=== PATIENT | female | born 1980 | race Caucasian/White ===

== ENCOUNTER 2017-08-31 10:32 | Emergency (ER) | payer MEDICAID ==
[~2017-08-31] VITALS: Ht 144.8 cm; Wt 54.4 kg
[2017-08-31 10:37] VITALS: BP 113/72
--- NOTE | 2017-08-31 10:50 | NUR ---
PT. CAME INTO THE ED W/ C/O L FANK PAIN SINCE THIS MORNING. PAIN UPON URINATION AND FREQUENCY. DENIES FEVER AND CHILLS, RR EVEN AND UNLABORED. DENIES ANY SOB, DENIES CHEST PAIN, RR EVEN AND UNLABORED. PT DENIES ANY ALLERGIES. ER MD NOTIFIED. WILL CONTINUE TO MONITOR
[2017-08-31] MEDS ORDERED: HYDROcodone/APAP 10/325 MG 1 TAB TAB PO ONE (11:00)
[2017-08-31 11:31] LABS: BASOPHILS % (AUTO) 0.5 % (0.0-2.0); EOSINOPHILS % (AUTO) 0.8 % (0.0-4.0); HEMATOCRIT 38.5 % (36-48); HEMOGLOBIN 13.4 g/dL (12.0-16.0); LYMPHOCYTES # (AUTO) 1.7 K/uL (2.5-16.5); LYMPHOCYTES % (AUTO) 28.9 % (20.5-51.1); MEAN CORPUSCULAR HEMOGLOBIN 30 pg (27-31); MEAN CORPUSCULAR HGB CONC 35 g/dL (33-37); MEAN CORPUSCULAR VOLUME 86.1 fL (80-94); MONOCYTES # (AUTO) 0.4 K/uL (0.8-1.0); MONOCYTES % (AUTO) 6.3 % (1.7-9.3); NEUTROPHILS # (AUTO) 3.8 K/uL (1.8-7.7); NEUTROPHILS % (AUTO) 63.5 % (42.2-75.2); PLATELET COUNT (AUTO) 189 K/uL (140-450); RED BLOOD CELL COUNT(AUTO) 4.47 MIL/uL (4.20-5.40); RED CELL DISTRIBUTION WIDTH 12.7 % (11.6-13.7)
[2017-08-31 11:39] LABS: APPEARANCE,URINE CLEAR (CLEAR); BILIRUBIN,URINE NEGATIVE (NEGATIVE); BLOOD, URINE 2+ (NEGATIVE); COLOR,URINE YELLOW (YELLOW); LEUKOCYTE ESTERASE ,URINE NEGATIVE (NEGATIVE); NITRITE, URINE NEGATIVE (NEGATIVE); UGLUCOSE 3+ (NEGATIVE)
[2017-08-31 11:48] LABS: ANION GAP 11.8 (8-16); CARBON DIOXIDE 29.4 mmol/L (21-32); CREATININE 0.7 mg/dL (0.6-1.3); POTASSIUM 4.2 mmol/L (3.5-5.1)
--- NOTE | 2017-08-31 11:50 | NUR ---
PT. IN ROOM , RESTING COMFORTABLY, RR EVEN AND UNLABORED WILL CONTINUE TO MONITOR.
[2017-08-31 11:52] LABS: RBC,URINE 20-50 /HPF (0-5); WBC,URINE 0-5 (RARE) /HPF (0-5)
[2017-08-31 11:54] LABS: ALBUMIN 3.7 g/dL (3.4-5.0); TOTAL BILIRUBIN 0.4 mg/dL (0.0-1.0)
--- NOTE | 2017-08-31 12:19 | NUR ---
PT. TAKEN TO CT VIA WHEELCHAIR BY
[2017-08-31 13:13] VITALS: BP 116/72
--- NOTE | 2017-08-31 13:13 | NUR ---
Patient discharged with v/s stable. Written and verbal after care instructions given and explained. Patient alert, oriented and verbalized understanding of instructions. Ambulatory with steady gait. All questions addressed prior to discharge. ID band removed. Patient advised to follow up with PMD. Rx of FLOMAX, NORCO, AND ZOFRAN given. Patient educated on indication of medication including possible reaction and side effects. Opportunity to ask questions provided and answered.
== END 2017-08-31 13:13 | disposition home or self-care (01) ==
LOC: MED 10:32
DX: N13.2 Hydronephrosis with renal and ureteral calculous obstruction (principal); E11.9 Type 2 diabetes mellitus without complications
CPT/HCPCS: 36415; 80053; 81001; 81025; 83690; 85025; 99285